=== PATIENT | female | born 1955 | race Caucasian/White ===

== ENCOUNTER 2017-10-15 11:58 | Emergency (ER) | payer OTHER ==
[~2017-10-15] VITALS: Ht 170.2 cm; Wt 89.1 kg
[~2017-10-15 11:58] MED LIST: AMOX1TAB10 PO; ASPI-535 PO; GLIP5TAB13 PO; IBUP800T25 PO; LANT3I SC; LORA-932 PO; LORA10TA3 PO; METF1000 PO; PIOG45TA17 PO; SIMV40TA3 PO
[2017-10-15 12:06] VITALS: Ht 170.2 cm; Wt 89.1 kg
[2017-10-15] MEDS ORDERED: traMADol 50 MG TAB PO ONE (14:00)
--- NOTE | 2017-10-15 14:06 | ERD ---
ER Documentation Chief Complaint Chief Complaint HAS R FOOT PAIN HPI 62-year-old female history of osteoarthritis, history around the first metatarsal, diabetes is presenting with right lateral foot pain ongoing for 3 months and worse this morning. She describes achy pain that she noted after she was moving some things around the house. Is on the lateral aspect, achy, worse with weightbearing and movement better at rest. She denies any fevers, chills. ROS All systems reviewed and are negative except as per history of present illness. Medications Home Meds Active Scripts Hydrocodone/Acetaminophen ([place] 5-325 Tablet) 1 Each Tablet, 1 TAB PO Q6H Y for PAIN, #7 TAB Prov:KAMARI MARIANO PA-C 10/15/17 Ibuprofen* (Motrin*) 600 Mg Tab, 600 MG PO Q6, #30 TAB Prov:KAMARI MARIANO PA-C 10/15/17 Loratadine* (Loratadine*) 10 Mg Tablet, 10 MG PO DAILY, #30 TAB Prov:KAMARI MARIANO PA-C 11/14/16 Amoxicillin/Potassium Clav (Amox-Clav 875-125 mg Tablet) 875-125 mg Tab, 1 TAB PO BID for 7 Days, #14 TAB Prov:KAMARI MARIANO PA-C 11/14/16 Ibuprofen* (Motrin*) 800 Mg Tab, 800 MG PO Q8 Y for PAIN, #30 TAB Prov:ANTHONY BLANCHARD 05/02/15 Reported Medications Insulin Glargine* (Lantus*) 100 Unit/Ml Soln, 8 UNIT SC HS, EA 05/02/15 Loratadine (Allergy) 10 Mg Tablet, 10 MG PO DAILY, TAB 05/02/15 Aspirin Ec (Aspir 81) 81 Mg Tablet.dr, 81 MG PO DAILY, TAB 05/02/15 Simvastatin (Simvastatin) 40 Mg Tablet, 40 MG PO HS, TAB 05/02/15 Glipizide* (Glipizide*) 5 Mg Tablet, 5 MG PO AC BREAKFAST, TAB 05/02/15 Pioglitazone Hcl* (Pioglitazone Hcl*) 45 Mg Tablet, 45 MG PO DAILY, TAB 05/02/15 Metformin Hcl* (Metformin Hcl*) 1,000 Mg Tablet, 1000 MG PO AC BREAKFAST BEDTIME , TAB 05/02/15 Allergies Allergies: Coded Allergies: No Known Allergy (Unverified , 10/15/17) PMhx/Soc History of Surgery: Yes (left ankle) Anesthesia Reaction: No Hx Neurological Disorder: No Hx Respiratory Disorders: No Hx Cardiac Disorders: No Hx Psychiatric Problems: No Hx Miscellaneous Medical Probl: Yes (DIABETES,htn,high cholesterol) Hx Alcohol Use: No Hx Substance Use: No Hx Tobacco Use: No Smoking Status: Never smoker Physical Exam Vitals Vital Signs Date Time Temp Pulse Resp B/P Pulse Ox O2 Delivery O2 Flow Rate FiO2 10/15/17 12:06 98.0 92 18 132/64 97 Physical Exam General: Well-developed, well-nourished. The patient appears in no acute distress. HEENT: Head is normocephalic, atraumatic. No scleral icterus. Neck: Supple. Nontender. Lungs: Clear to auscultation. Normal air movement. Heart: Regular rate and rhythm. S1 and S2 are normal. No murmurs, gallops, or rubs. Abdomen: Nondistended. Extremities: Patient has swelling and tenderness over the right fifth metatarsal , she is ambulatory but limited weightbearing, PEEP dorsalis pedis pulses 2+ bilaterally, there is no warmth, no erythema, there is a scar over the first MTP joint. Neurologic: Alert and oriented 3. No focal deficits. Skin: Normal turgor. No rash or lesions. Results 24 hrs Current Medications Medications (Trade) Dose Ordered Sig/Shagufta Route PRN Reason Start Time Stop Time Status Last Admin Dose Admin Tramadol HCl (Ultram) 50 mg ONCE ONCE PO 10/15/17 14:00 10/15/17 14:01 DC 10/15/17 13:50 DIAGNOSTIC IMAGING REPORT Patient: ARMANDO SOTO : 1955 Age: 62 Sex: F MR #: [id number] DOS: 10/15/17 1334 Ordering MD: KAMARI MARIANO PA-C Location: [facility] Room/Bed: PROCEDURE: Right foot series CLINICAL INDICATION: Right lateral foot pain TECHNIQUE: AP oblique and lateral views COMPARISON: 07/22/2014 right foot series FINDINGS: The appearance of interval onset of an acute fracture of the base of the fifth metatarsal is noted. Healed prior fractures of the distal proximal fourth phalanx is noted. The patient is status post remote first metatarsal osteotomy changes with intact screws noted. Generalized osteopenia is present. IMPRESSION: 1. Acute, closed, nondisplaced right fifth metatarsal base fracture. 2. Status post remote right first metatarsal osteotomy changes with joint space narrowing of the first metatarsal phalangeal joint. 3. Healed previously noted right fourth proximal phalangeal fracture RPTAT: HDC .Kary Dial MD, Date Time Electronically viewed and signed by .Kary Dial MD, on 10/15/2017 14: 21 .C/ CC: KAMARI MARIANO PA-C Procedures/[facility] ED course: Patient's right lower extremity was placed in a posterior short leg splint and crutch training was done however the patient states that she does not feel comfortable with crutches, and she states she has fallen before. The patient will be given a prescription for a wheelchair. Splint Assessment: Neurovascularly intact post splint placement with good fit. Medical decision makin-year-old female presents with foot pain, differential diagnosis includes fracture, metatarsalgia, plantar fasciitis, osteoarthritis, osteomyelitis, septic joint, neuropathy, and among others. Patient is a fracture at the base of the fifth metatarsal. It appears to be in zone 3 and therefore the patient will be placed in a splint, to be nonweightbearing to avoid nonunion. The patient was advised that she needs follow-up with an orthopedist by the end of this week. Patient's blood pressure was elevated (>120/80) but appears stable without evidence of hypertension emergency or urgency. The patient was counseled about the risks of hypertension and urged to pursue outpatient monitoring and therapy within a week with their primary care physician. Departure Diagnosis: Primary Impression: Fracture of fifth metatarsal bone Condition: KAMARI Magana PA-C Oct 15, 2017 14:05
--- NOTE | 2017-10-15 14:22 | RADRPT ---
PROCEDURE: Right foot series CLINICAL INDICATION: Right lateral foot pain TECHNIQUE: AP oblique and lateral views COMPARISON: 07/22/2014 right foot series FINDINGS: The appearance of interval onset of an acute fracture of the base of the fifth metatarsal is noted. Healed prior fractures of the distal proximal fourth phalanx is noted. The patient is status post re mote first metatarsal osteotomy changes with intact screws noted. Generalized osteopenia is present. IMPRESSION: 1. Acute, closed, nondisplaced right fifth metatarsal base fracture. 2. Status post remote right first metatarsal osteotomy changes with joint space narrowing of the fi rst metatarsal phalangeal joint. 3. Healed previously noted right fourth proximal phalangeal fracture RPTAT: HDC .Kary Dial MD, Date Time Electronically viewed and signed by .Kary Dial MD, on 10/15/2017 14:21 .C/
[2017-10-15] MEDS ORDERED: IBUP-1542 PO (14:58)
[2017-10-15] MEDS ORDERED: HYDR-906 PO (14:58)
[2017-10-15 17:15] VITALS: BP 124/68; PULSE 88; RESP 16
== END 2017-10-15 17:25 | disposition home or self-care (01) ==
LOC: FTE 11:58
DX: S92.351A Displaced fracture of fifth metatarsal bone, right foot, initial encounter for closed fracture (principal); E11.9 Type 2 diabetes mellitus without complications; I10 Essential (primary) hypertension; X58.XXXA Exposure to other specified factors, initial encounter; Y92.009 Unspecified place in unspecified non-institutional (private) residence as the place of occurrence of the external cause; Z79.82 Long term (current) use of aspirin; Z79.4 Long term (current) use of insulin; Z79.84 Long term (current) use of oral hypoglycemic drugs
CPT/HCPCS: 29515; 73630; Z7502; Z7610

== ENCOUNTER 2019-03-07 14:50 | Emergency (ER) | payer OTHER ==
[~2019-03-07] VITALS: Ht 162.6 cm; Wt 89.2 kg
[~2019-03-07 14:50] MED LIST changes: +HYDR-4011 PO; +IBUP-1542 PO; -IBUP800T25 PO; +IBUP800T48 PO; +LORA-1026 PO; -LORA-932 PO; -METF1000 PO; +METF100010 PO; -PIOG45TA17 PO; +PIOG45TA64 PO
[2019-03-07 14:57] VITALS: BP 156/72; PULSE 112; RESP 20; Ht 162.6 cm; Wt 89.2 kg
[2019-03-07] MEDS ORDERED: POLY15DR13 OP (16:36)
--- NOTE | 2019-03-07 16:39 | ERD ---
ER Documentation Chief Complaint Chief Complaint R eye redness/pain since this AM; dog bite sveral days ago HPI 63-year-old female presents with multiple complaints. She has some right eye redness noticed today appears to have URI symptoms over the last week. She start her primary doctor was diagnosed with a viral URI. She has an additional complaint of a dog bite on her right lower extremity sustained 1 week ago. She is concerned about possible vaccinations or rabies. She has no redness, fevers, restricted range of motion or weakness, additional complaints. Tetanus is up-to-date. She denies visual changes, visual table deficits, pain, discharge. ROS All systems reviewed and are negative except as per history of present illness. Medications Home Meds Active Scripts Polyvinyl Alcohol/Povidone (Artificial Tears Drops) 15 Ml Drops, 15 ML OP QID for 10 Days, BOTTLE 1 to 2 drops 4 times a day right eye for 10 days. Prov:JEOVANNY NIELSEN MD 03/07/19 Hydrocodone/Acetaminophen ([place] 5-325 Tablet) 1 Each Tablet, 1 TAB PO Q6H PRN for PAIN, #7 TAB Prov:KAMARI MARIANO PA-C 10/15/17 Ibuprofen* (Motrin*) 600 Mg Tab, 600 MG PO Q6, #30 TAB Prov:KAMARI MARIANO PA-C 10/15/17 Loratadine* (Loratadine*) 10 Mg Tablet, 10 MG PO DAILY, #30 TAB Prov:KAMARI MARIANO PA-C 11/14/16 Amoxicillin/Potassium Clav (Amox-Clav 875-125 mg Tablet) 875-125 mg Tab, 1 TAB PO BID for 7 Days, #14 TAB Prov:KAMARI MARIANO PA-C 11/14/16 Ibuprofen* (Motrin*) 800 Mg Tab, 800 MG PO Q8 PRN for PAIN, #30 TAB Prov:ANTHONY BLANCHARD 05/02/15 Reported Medications Insulin Glargine* (Lantus*) 100 Unit/Ml Soln, 8 UNIT SC HS, EA 05/02/15 Loratadine (Allergy) 10 Mg Tablet, 10 MG PO DAILY, TAB 05/02/15 Aspirin Ec (Aspir 81) 81 Mg Tablet.dr, 81 MG PO DAILY, TAB 05/02/15 Simvastatin (Simvastatin) 40 Mg Tablet, 40 MG PO HS, TAB 05/02/15 Glipizide* (Glipizide*) 5 Mg Tablet, 5 MG PO AC BREAKFAST, TAB 05/02/15 Pioglitazone Hcl* (Pioglitazone Hcl*) 45 Mg Tablet, 45 MG PO DAILY, TAB 05/02/15 Metformin Hcl* (Metformin Hcl*) 1,000 Mg Tablet, 1000 MG PO AC BREAKFAST BEDTIME, TAB 05/02/15 Allergies Allergies: Coded Allergies: No Known Allergy (Unverified , 10/15/17) PMhx/Soc History of Surgery: Yes (left ankle) Anesthesia Reaction: No Hx Neurological Disorder: No Hx Respiratory Disorders: No Hx Cardiac Disorders: No Hx Psychiatric Problems: No Hx Miscellaneous Medical Probl: Yes (DIABETES,htn,high cholesterol) Hx Alcohol Use: No Hx Substance Use: No Hx Tobacco Use: No Smoking Status: Never smoker FmHx Family History: No diabetes, No coronary disease, No other Physical Exam Vitals Vital Signs Date Temp Pulse Resp B/P (MAP) Pulse Ox O2 O2 Flow FiO2 Time Delivery Rate 03/07/19 98.6 112 20 156/72 100 14:57 (100) Physical Exam Const: No acute distress Head: Atraumatic Eyes: Right eye subconjunctival hemorrhage approximately 4-7 o'clock right eye. There is no involvement of the anterior chamber and eyes PERRLA and extraocular movements intact. No periorbital swelling, proptosis. ENT: Normal External Ears, Nose and Mouth. Neck: Full range of motion. No meningismus. Resp: Clear to auscultation bilaterally Cardio: Regular rate and rhythm, no murmurs Abd: Soft, non tender, non distended. Normal bowel sounds Skin: No petechiae or rashes. Still puncture wound without erythema, bleeding or discharge on the right lower extremity. No restricted motion or weakness. No calf swelling or Homans sign. No fluctuance. Back: No midline or flank tenderness Ext: No cyanosis, or edema Neur: Awake and alert Psych: Normal Mood and Affect Procedures/MDM Patient presents with signs and symptoms of right eye subconjunctival hemorrhage, likely from coughing. She has no complaints of visual changes or visual deficits or pain or signs of infection. She will discharged home with artificial tears, further observation at home and return precautions. Patient has no signs or symptoms of visual changes, visual field deficits. There are no signs or symptoms to suggest orbital cellulitis, retinal detachment, optic neuritis, retinal artery ischemia, dendritic lesions, ulcers, threats to vision or additional eye emergencies. Doubt acute glaucoma. Patient will be discharged home with recommendations for primary care and ophthalmology follow- up within the next 1-2 days. They should otherwise return to the ER for persistent or worsening symptoms. ' She additionally has what appears to be a healed or mostly healed puncture wound from a dog bite on her right lower extremity sustained last week per there is no current signs of infection, deficits, ischemia, additional complications. Patient was provided reassurances rabies not likely in this locale from a domesticated dog. Tetanus is up-to-date. We will defer antibiotics given that is been a week and there is no signs of infection. The patient was stable with no new complaints during the ER course. Clinically, there is no current evidence to suggest meningitis, sepsis, acute abdomen, pneumonia, stroke, acute coronary syndrome, pulmonary embolism, aortic dissection or any other emergent condition appearing to require further evaluation or hospitalization. Patient counseled regarding my diagnostic impression and care plan. Prior to discharge all questions answered. Pt agrees with treatment plan and understands strict return precautions. Pt is instructed to follow up with primary care provider within 24- 48 hours. Precautionary instructions provided including instructions to return to the ER if not improving or for any worsening or changing symptoms or concerns. Departure Diagnosis: Primary Impression: Dog bite of extremity Additional Impression: Subconjunctival hemorrhage Laterality: right Qualified Codes: H11.31 - Conjunctival hemorrhage, right eye Condition: Stable Patient Instructions: Dog Bite, Subconjunctival Hemorrhage Additional Instructions: Cheque otro vez con sparks doctor primario en el proximo [place] or regresa para mas o nueva simptomas. JEOVANNY NIELSEN MD Mar 07, 2019 16:39
== END 2019-03-07 17:07 | disposition home or self-care (01) ==
LOC: FTE 14:50
DX: H11.31 Conjunctival hemorrhage, right eye (principal); S81.852A Open bite, left lower leg, initial encounter; I10 Essential (primary) hypertension; E11.9 Type 2 diabetes mellitus without complications; W54.0XXA Bitten by dog, initial encounter; Y92.9 Unspecified place or not applicable; Z79.4 Long term (current) use of insulin; Z79.82 Long term (current) use of aspirin
CPT/HCPCS: 99283

== ENCOUNTER 2019-04-15 13:39 | Emergency (ER) | payer OTHER ==
[~2019-04-15] VITALS: Ht 167.6 cm; Wt 86.0 kg
[~2019-04-15 13:39] MED LIST changes: +POLY15DR13 OP
[2019-04-15 13:42] VITALS: BP 135/63; PULSE 92; RESP 18; Ht 167.6 cm; Wt 86.0 kg
--- NOTE | 2019-04-15 15:14 | ERD ---
ER Documentation Chief Complaint Chief Complaint B/L WRIST , RT ANKLE PAIN S/P SLIP AND FALL @ HOME HPI 63-year-old female, with history of diabetes, presents to the emergency department, complaining of bilateral wrist pain and right foot pain after sustaining a mechanical ground-level fall landing on her hyper stretched hands. The event occurred approximately 2 hours prior to arrival. No head trauma, the patient denies any precipitating chest pain or dizziness. The pain is dull, constant, 9/10, associated with decreased range of motion, she denies distal weakness, numbness or tingling. ROS All systems reviewed and are negative except as per history of present illness. Medications Home Meds Active Scripts Wheelchair (Wheelchair) 1 Each Each, EACH MC for MULTIPLE FRACTURES, #1 Prov:ZIYAD BERRY MD 04/15/19 Hydrocodone/Acetaminophen ([place] 5-325 Tablet) 1 Each Tablet, 1 TAB PO QHS PRN for PAIN, #7 TAB Prov:ZIYAD BERRY MD 04/15/19 Ibuprofen* (Motrin*) 400 Mg Tab, 400 MG PO Q6H PRN for PAIN AND OR ELEVATED TEMP, #30 TAB Prov:ZIYAD BERRY MD 04/15/19 Acetaminophen* (Tylenol*) 325 Mg Tablet, 2 TAB PO Q6 PRN for PAIN AND OR ELEVATED TEMP, #20 TAB Prov:ZIYAD BERRY MD 04/15/19 Polyvinyl Alcohol/Povidone (Artificial Tears Drops) 15 Ml Drops, 15 ML OP QID for 10 Days, BOTTLE 1 to 2 drops 4 times a day right eye for 10 days. Prov:JEOVANNY NIELSEN MD 03/07/19 Hydrocodone/Acetaminophen ([place] 5-325 Tablet) 1 Each Tablet, 1 TAB PO Q6H PRN for PAIN, #7 TAB Prov:KAMARI MARIANO PA-C 10/15/17 Ibuprofen* (Motrin*) 600 Mg Tab, 600 MG PO Q6, #30 TAB Prov:KAMARI MARIANO PA-C 10/15/17 Loratadine* (Loratadine*) 10 Mg Tablet, 10 MG PO DAILY, #30 TAB Prov:KAMARI MARIANO PA-C 11/14/16 Amoxicillin/Potassium Clav (Amox-Clav 875-125 mg Tablet) 875-125 mg Tab, 1 TAB PO BID for 7 Days, #14 TAB Prov:KAMARI MARIANO PA-C 11/14/16 Ibuprofen* (Motrin*) 800 Mg Tab, 800 MG PO Q8 PRN for PAIN, #30 TAB Prov:CLARISSA BLANCHARDKirstin Art 05/02/15 Reported Medications Insulin Glargine* (Lantus*) 100 Unit/Ml Soln, 8 UNIT SC HS, EA 05/02/15 Loratadine (Allergy) 10 Mg Tablet, 10 MG PO DAILY, TAB 05/02/15 Aspirin Ec (Aspir 81) 81 Mg Tablet.dr, 81 MG PO DAILY, TAB 05/02/15 Simvastatin (Simvastatin) 40 Mg Tablet, 40 MG PO HS, TAB 05/02/15 Glipizide* (Glipizide*) 5 Mg Tablet, 5 MG PO AC BREAKFAST, TAB 05/02/15 Pioglitazone Hcl* (Pioglitazone Hcl*) 45 Mg Tablet, 45 MG PO DAILY, TAB 05/02/15 Metformin Hcl* (Metformin Hcl*) 1,000 Mg Tablet, 1000 MG PO AC BREAKFAST BEDTIME, TAB 05/02/15 Discontinued Scripts [wheel] No Conflict Check Prov:ZIYAD BERRY MD 04/15/19 Allergies Allergies: Coded Allergies: No Known Allergy (Unverified , 10/15/17) PMhx/Soc History of Surgery: Yes (left ankle) Anesthesia Reaction: No Hx Neurological Disorder: No Hx Respiratory Disorders: No Hx Cardiac Disorders: No Hx Psychiatric Problems: No Hx Miscellaneous Medical Probl: Yes (DIABETES,htn,high cholesterol) Hx Alcohol Use: No Hx Substance Use: No Hx Tobacco Use: No Smoking Status: Never smoker FmHx Family History: diabetes; No coronary disease Physical Exam Vitals Vital Signs Date Temp Pulse Resp B/P (MAP) Pulse Ox O2 O2 Flow FiO2 Time Delivery Rate 04/15/19 36.7 15:23 04/15/19 36.7 15:23 04/15/19 98.0 92 18 135/63 99 13:42 (87) Physical Exam Patient alert, oriented, vital signs stable, seems in distress due to pain. HEAD: Normocephalic, atraumatic. EYES: PERRLA, EOMI, Sclera and conjunctiva appear normal. NOSE: Clear and patent nostrils. EARS: Canals clear, tympanic membranes WNL. MOUTH: normal lips and tongue, no oral lesions. THROAT: Normal oropharynx, no tonsillar exudates. NECK: Supple, No lymphadenopathy. Full ROM without pain or tenderness. HEART: RRR, no rubs, murmurs, clicks or gallops. LUNGS: Clear to auscultation. ABDOMEN: Soft, non-tender without masses or hepatosplenomegaly. EXTREMITIES: Bilateral wrist with tenderness, edema and decreased range of motion. Right foot: Tenderness of the medial lateral aspect. Distal neurovascular exam intact. BACK: Full ROM, no deformity, normal back exam NEURO: Cranial nerves grossly intact, no motor or sensory deficit SKIN: No rashes, no petechia. Results 24 hrs Current Medications Medications Dose Sig/Shagufta Start Time Status Last (Trade) Ordered Route PRN Stop Time Admin Dose Reason Admin 650 mg ONCE ONCE 04/15/19 DC 04/15/19 Acetaminophen PO 15:30 15:23 (Tylenol 04/15/19 15:31 Tab) Ibuprofen 400 mg ONCE ONCE 04/15/19 DC 04/15/19 (Motrin) PO 15:30 15:23 04/15/19 15:31 Patient: ARMANDO SOTO : 1955 Age: 63 Sex: F MR #: [id number] DOS: 04/15/19 1508 Ordering MD: ZIYAD BERRY MD Location: [facility] Room/Bed: PROCEDURE: XR Foot. CLINICAL INDICATION: Fall, multiple injuries. TECHNIQUE: Three views of the right foot are available for review. COMPARISON: None available FINDINGS: There is a transverse fracture through the base of the fifth metatarsal. There is sclerosis and some periosteal new bone suggesting that this is remote. However, there is lucency through the fracture which may indicate refracture. This should be correlated with the patient's clinical findings. There is some periosteal reaction about the mid aspect of the fourth metatarsal. This may reflect a healed stress fracture. IMPRESSION: 1. Transverse fracture through the base of the fifth metatarsal with sclerosis and new bone formation which may reflect an old ununited fracture versus an old fracture with a refracture. This should be correlated with clinical findings. 2. Periosteal new bone about the mid aspect of the fourth metacarpal which may reflect an old healed stress fracture. Patient: ARMANDO SOTO : 1955 Age: 63 Sex: F MR #: [id number] DOS: 04/15/19 1508 Ordering MD: ZIYAD BERRY MD Location: [facility] Room/Bed: PROCEDURE: XR Wrist. CLINICAL INDICATION: Fall, multiple injuries. TECHNIQUE: AP, lateral and oblique views of the right wrist were performed. COMPARISON: No prior studies are available for comparison. FINDINGS: There is a comminuted, minimally impacted, intra-articular fracture of the distal radius with slight dorsal angulation of the distal fragment. There is a nondisplaced ulnar styloid process fracture as well., IMPRESSION: 1. Comminuted, minimally impacted, intra-articular fracture of the distal radius with very slight dorsal angulation of the distal fragment. 2. Nondisplaced ulnar styloid process fracture. Procedures/MDM Differential diagnosis considered include but not limited are: sprain/strain, ligament injury, fracture, dislocation, low suspicion for acute infectious process. Soft compartments, neurovascular exam grossly intact. Physical examination and clinical presentation consistent with bilateral wrist fracture and right metatarsal fracture. During the ED course the patient received treatment with bilateral sugar tong splints and Ortho boot presenting overall improvement of the symptoms. Splint evaluation: Location: Bilateral wrist sugar tong splints and right foot Ortho boot Position: good alignment in anatomical position Neurovascular intact Results and clinical impression discussed with the patient who agrees with management. The patient is stable to be treated outpatient and will be discharge d home with recommendations for Ortho evaluation EZEKIEL, meanwhile, ice, rest and partial immobilization. NSAIDs 3 times daily for 5 days and close monitoring. The patient was instructed to follow up with the primary care provider in the next 48h. If symptoms persist, worsen or new symptoms develop, then patient should return to the ED immediately. Instructions explained and given to patient with acknowledgment and demonstrated understanding. Disclaimer: Inadvertent spelling and grammatical errors are likely due to EHR/dictation software use and do not reflect on the overall quality of patient care. Also, please note that the electronic time recorded on this note does not necessarily reflect the actual time of the patient encounter. Departure Diagnosis: Primary Impression: Fall with significant injury Additional Impressions: Wrist fracture, bilateral Fracture of fifth metatarsal bone of right foot Condition: Stable Patient Instructions: Fall Prevention Additional Instructions: Muchas sarabjit por [facility] para sparks servicio. Esperamos que en sparks visita a la isabell de emergencia sparks problema medico haya sido solucionado y que se sienta mucho mejor. Para estar seguros que sparks mejoria sigue en proceso, le pedimos el favor de hacer zachariah breann de seguimiento medico con sparks doctor primario en los proximos 2-4 [place]. Lleve con usted estos documentos y las medicinas recetadas. Si cristiano sintomas empeoran, NO SE ESPERE, por favor regrese a isabell de emergencia INMEDIATAMENTE. En iona que usted no tenga un mdico de atencin primaria: Llame al mdico o clnica comunitaria de referencia que aparece abajo hubert las horas de consultorio para hacer zachariah breann para que le vean. CLINICAS: [facility] [phone] [facility] [phone] [facility] [phone] [facility] [phone] [place] [id number] [phone] [place] [id number] [phone] ZIYAD LOPEZ MD April 15, 2019 15:14
[2019-04-15] MEDS ORDERED: ACETAMINOPHEN 325 MG TAB PO ONE (15:30)
[2019-04-15] MEDS ORDERED: IBUPROFEN 200 MG TAB PO ONE (15:30)
[2019-04-15] MEDS ORDERED: IBUP-1561 PO (16:31)
[2019-04-15] MEDS ORDERED: HYDR-4011 PO (16:31)
[2019-04-15] MEDS ORDERED: ACET325T33 PO (16:31)
[2019-04-15] MEDS ORDERED: [UNRECOGNIZED DRUG - OTHER] (16:33)
[2019-04-15] MEDS ORDERED: WHEE1EAC3 MC (16:33)
== END 2019-04-15 17:12 | disposition home or self-care (01) ==
LOC: FTE 13:39
DX: S52.571A Other intraarticular fracture of lower end of right radius, initial encounter for closed fracture (principal); S52.572A Other intraarticular fracture of lower end of left radius, initial encounter for closed fracture; S52.612A Displaced fracture of left ulna styloid process, initial encounter for closed fracture; S52.614A Nondisplaced fracture of right ulna styloid process, initial encounter for closed fracture; S92.351A Displaced fracture of fifth metatarsal bone, right foot, initial encounter for closed fracture; E11.9 Type 2 diabetes mellitus without complications; I10 Essential (primary) hypertension; W01.0XXA Fall on same level from slipping, tripping and stumbling without subsequent striking against object, initial encounter; Y92.9 Unspecified place or not applicable; Z79.82 Long term (current) use of aspirin; Z79.4 Long term (current) use of insulin
CPT/HCPCS: 73630